=== PATIENT | male | born 1965 | race Caucasian/White ===

== ENCOUNTER → 2021-01-10 | Day surgery (SDC) | payer BC ==
[~2021-01-10] MED LIST: Midazolam 1 MG/ML 2 ML SDV ONE; Propofol 200 MG/20 ML SDV ONE; Sodium Chloride 0.9% 1,000 ML IV SCH; fentaNYL 100 MCG/2 ML SDV ONE
[2021-01-10 08:53] VITALS: BP 122/75; PULSE 69
--- NOTE | 2021-01-10 11:38 | OR ---
DATE OF PROCEDURE: 01/10/2021 SURGEON: Yonathan Khan MD PROCEDURE: Colonoscopy. FINDINGS: 1. Ascending colon polyp, approximately 5 mm, completely removed using cold biopsy forceps. 2. Sigmoid colon polyp, approximately 8 mm, completely removed using hot snare wire device. COMPLICATIONS: None. FINISHING AREA OPERATOR: None. ANESTHESIA: MAC. PREOPERATIVE DIAGNOSIS: Screening colonoscopy. POSTOPERATIVE DIAGNOSIS: Screening colonoscopy. RISKS: Risks, benefits, alternatives, and limitations including, but not limited to infection, bleeding, perforation, false positives, and false negatives were explained to the patient, and he wished to proceed. PROCEDURE IN DETAIL: The patient was placed in left lateral decubitus position. Digital rectal exam was performed, without abnormality. Scope was introduced and advanced atraumatically to the ileocecal valve. A photo was taken. The scope was brought back to the ascending, transverse, descending colon, and retroflexed. The aforementioned polyps were identified and completely removed. No evidence of diverticulitis or diverticulosis. No colitis. No old or new blood. The prep was acceptable, approximately 90% luminal surface could be seen. Greater than 8 minutes was spent removing the scope. The patient tolerated the procedure well. Yonathan Khan MD /[id number]
== END ==
LOC: JP.SDS 06:22
PROVIDERS: ATTEND Surgery
DX: Z12.11 Encounter for screening for malignant neoplasm of colon (principal); D12.5 Benign neoplasm of sigmoid colon; D12.2 Benign neoplasm of ascending colon; N18.9 Chronic kidney disease, unspecified
CPT/HCPCS: 45380; 45385; J2250; J2704; J3010; J7030; 88305

== ENCOUNTER 2024-11-06 08:04 | Day surgery (SDC) | payer BC, OTHER ==
[2024-11-06] MEDS: Lactated Ringers 1,000 ML IV SCH (08:40)
[2024-11-06] MEDS ORDERED: fentaNYL 100 MCG/2 ML SDV ONE (10:04)
[2024-11-06] MEDS ORDERED: Propofol 200 MG/20 ML SDV ONE (10:04)
[2024-11-06] MEDS ORDERED: Midazolam 1 MG/ML 2 ML SDV ONE (10:04)
[2024-11-06 13:26] VITALS: BP 121/81; PULSE 64
== END 2024-11-06 12:00 | disposition home or self-care (01) ==
LOC: JP.SDS 08:04
PROVIDERS: ATTEND Family Medicine
DX: Z12.11 Encounter for screening for malignant neoplasm of colon (principal)
CPT/HCPCS: 45378; J2250; J2704; J3010; J7120